=== PATIENT | male | born 1990 | race American Indian/Alaskan Native ===

== ENCOUNTER 2021-04-21 08:03 | Emergency (ER) | payer OTHER ==
[~2021-04-21] VITALS: Ht 175.3 cm; Wt 101.6 kg
[2021-04-21 08:05] VITALS: BP 126/74
[2021-04-21] MEDS ORDERED: AUGM875T28 PO (09:36)
[2021-04-21] MEDS ORDERED: VENTAER INH (09:36)
[2021-04-21] MEDS ORDERED: CLAR10CA3 PO (09:36)
[2021-04-21] MEDS ORDERED: PRED20TA PO (09:36)
== END 2021-04-21 09:48 | disposition home or self-care (01) ==
LOC: M ED 08:03
DX: J20.9 Acute bronchitis, unspecified (principal); J01.90 Acute sinusitis, unspecified; F17.200 Nicotine dependence, unspecified, uncomplicated; Z88.2 Allergy status to sulfonamides; Z79.899 Other long term (current) drug therapy

== ENCOUNTER 2021-05-06 01:22 | Emergency (ER) | payer OTHER ==
[~2021-05-06] VITALS: Ht 172.7 cm; Wt 100.9 kg
[~2021-05-06 01:22] MED LIST: AUGM875T28 PO; CLAR10CA3 PO; PRED20TA PO; VENTAER INH
--- OUTSIDE RECORDS SUMMARY | 2021-05-06 02:52 | CCD ---
Author Author [facility] Address Unknown Phone Unavailable Support Name Relationship Address Phone [facility] Next Of Kin [address] [place] [address] Unavailable Re-disclosure Warning The records that you are about to access may contain information from federally-assisted alcohol or drug abuse programs. If such information is present, then the following federally mandated warning applies: This information has been disclosed to you from records protected by federal confidentiality rules (42 CFR part 2). The federal rules prohibit you from making any further disclosure of this information unless further disclosure is expressly permitted by the written consent of the person to whom it pertains or as otherwise permitted by 42 CFR part 2. A general authorization for the release of medical or other information is NOT sufficient for this purpose. The Federal rules restrict any use of the information to criminally investigate or prosecute any alcohol or drug abuse patient.The records that you are about to access may contain highly sensitive health information, the redisclosure of which is protected by Article 27-F of the [facility] Public Health law. If you continue you may have access to information: Regarding HIV / AIDS; Provided by facilities licensed or operated by the [facility] Office of Mental Health; or Provided by the [facility] Office for People With Developmental Disabilities. If such information is present, then the following [facility] mandated warning applies: This information has been disclosed to you from confidential records which are protected by state law. State law prohibits you from making any further disclosure of this information without the specific written consent of the person to whom it pertains, or as otherwise permitted by law. Any unauthorized further disclosure in violation of state law may result in a fine or detention sentence or both. A general authorization for the release of medical or other information is NOT sufficient authorization for further disc losure. Medications No Information Insurance Providers Payer name Policy type / Coverage type Policy ID Covered green party ID Covered green party's relationship to portillo Policy [place] Plan Information [facility] [employer] [id number] Problems, Conditions, and Diagnoses No Information Surgeries/Procedures No Information Results No Information Social History No Information
[2021-05-06 05:21] LABS: BASO % 0.1 % (0.0-1.0); EOS % 0.3 % (0.0-3.0); HEMATOCRIT 44.1 % (42.0-52.0); LYMPH # 2.3 10^3/uL (1.5-5.0); LYMPH % 15.2 % (24.0-44.0); MEAN CORPUSCULAR VOLUME 85.3 fl (80.0-96.0); MONO # 1.3 10^3/uL (0.0-0.8); MONO % 8.7 % (2.0-8.0); NEUTROPHILS # 11.5 10^3/uL (1.5-8.5); NEUTROPHILS % 75.4 % (36.0-66.0); PLATELET COUNT, AUTOMATED 167 10^3/uL (150-450); RED BLOOD COUNT 5.17 10^6/uL (4.30-6.10); WHITE BLOOD COUNT 15.2 10^3/uL (4.0-10.0)
[2021-05-06 05:43] LABS: BLOOD UREA NITROGEN 14 MG/DL (7-18); CALCIUM LEVEL 8.9 MG/DL (8.5-10.1); CARBON DIOXIDE LEVEL 26 MEQ/L (21-32); CHLORIDE LEVEL 103 MEQ/L (98-107); GLOMERULAR FILTRATION RATE > 60.0 (>60); GLUCOSE, FASTING 89 MG/DL (70-100); POTASSIUM SERUM 4.1 MEQ/L (3.5-5.1); SODIUM LEVEL 136 MEQ/L (136-145)
--- NOTE | 2021-05-06 05:44 | REPVR ---
PROCEDURE INFORMATION: Exam: XR Chest Exam date and time: 05/06/2021 4:56 AM Age: 30 years old Clinical indication: Pain; On breathing; Additional info: SOB TECHNIQUE: Imaging protocol: XR of the chest. Views: 1 view. COMPARISON: No relevant prior studies available. FINDINGS: Lungs: Unremarkable. No consolidation. Pleural spaces: Unremarkable. No pleural effusion. No pneumothorax. Heart/Mediastinum: Unremarkable. No cardiomegaly. Bones/joints: Unremarkable. IMPRESSION: No acute findings. Electronically signed by: Devin Raygoza On 05/06/2021 05:43:46 AM
[2021-05-06 06:53] LABS: RSV AMPLIFICATION NEGATIVE (NEGATIVE)
[2021-05-06 07:45] VITALS: BP 125/86
--- NOTE | 2021-05-07 09:04 | ECGEPIP ---
[facility] - ED Test Date: 2021-05-06 Pat Name: YOHANNES MCKEON Department: Room: - Gender: Male [employer]: er : 1990 Requested By: ROSALVA Reeves Order Number: [id number] Reading MD: Crystal Shannon Measurements Intervals [place] Rate: 77 P: 32 [place]: 156 QRS: -8 QRSD: 88 T: -7 QT: 394 QTc: 445 Interpretive Statements Normal sinus rhythm NSTTW abnormalities No prior Electronically Signed on 05-07-2021 9:04:32 EDT by Crystal Shannon
== END 2021-05-06 08:01 | disposition home or self-care (01) ==
LOC: M ED 01:22
DX: R06.02 Shortness of breath (principal); R07.89 Other chest pain; T69.8XXA Other specified effects of reduced temperature, initial encounter; R94.31 Abnormal electrocardiogram [ECG] [EKG]; F17.200 Nicotine dependence, unspecified, uncomplicated; Z79.899 Other long term (current) drug therapy; Z88.1 Allergy status to other antibiotic agents; Z88.2 Allergy status to sulfonamides

== ENCOUNTER 2022-09-20 22:39 | Emergency (ER) | payer OTHER ==
[~2022-09-20] VITALS: Ht 175.3 cm; Wt 119.8 kg
[2022-09-21 06:22] VITALS: BP 129/74
== END 2022-09-21 07:10 | disposition home or self-care (01) ==
LOC: M ED 22:39
DX: J06.9 Acute upper respiratory infection, unspecified (principal); Z88.2 Allergy status to sulfonamides